=== PATIENT | female | born 1955 | race Caucasian/White ===

== ENCOUNTER 2016-07-05 07:25 | Day surgery (SDC) | payer OTHER ==
[~2016-07-05] VITALS: Ht 152.4 cm; Wt 56.3 kg
--- NOTE | 2016-07-17 12:43 | OR ---
ADMIT: 07/05/2016 RM/LOC: [facility] MR#: [id number] [address] [id number] ELENAMEI ANDERSONIRIS Orellana [address] [place] [id number] Operative/Delivery Room Report SEX: F AGE: 60 : 1955 SURGERY DATE: 07/05/2016 SURGEON: Lenin Torres MD PREOPERATIVE DIAGNOSIS: Need for screening colonoscopy. POSTOPERATIVE DIAGNOSIS: Few scattered sigmoid diverticula, otherwise normal colonoscopy. PROCEDURE PERFORMED: Colonoscopy. ANESTHESIA: Sedation. ESTIMATED BLOOD LOSS: None. DESCRIPTION OF PROCEDURE: After appropriate informed consent was obtained, the patient was brought to the endoscopy suite. IV sedation was provided. Rectal exam revealed mild hemorrhoids. No rectal masses. The scope was introduced and passed through the entire length of colon. She had a very good prep. No evidence of polyps or masses, just a few scattered sigmoid diverticula. The scope was easily advanced to the cecum. The ileocecal valve and appendiceal orifice appeared normal. The scope was then slowly and carefully withdrawn. Again, the entire colonic mucosa was inspected on the way out and this all appeared normal. The scope was retroflexed in the rectum revealing mild internal hemorrhoids, no rectal masses. The patient tolerated the procedure well and was taken to the recovery room in stable condition. Lenin Torres MD/ triston JOB #: [id number] CC: Lenin Torres, Attending Physician Janey Lee, Family Physician
== END 2016-07-05 11:35 | disposition home or self-care (01) ==
LOC: SSS 07:25
PROC: 0DJD8ZZ Inspection of Lower Intestinal Tract, Via Natural or Artificial Opening Endoscopic (ICD-10-PCS; principal; 2016-07-05)
DX: Z12.11 Encounter for screening for malignant neoplasm of colon (principal); K64.8 Other hemorrhoids; K57.30 Diverticulosis of large intestine without perforation or abscess without bleeding; Z98.890 Other specified postprocedural states; Z88.0 Allergy status to penicillin; Z79.899 Other long term (current) drug therapy; Z90.710 Acquired absence of both cervix and uterus; Z98.51 Tubal ligation status